=== PATIENT | female | born 1960 | race Caucasian/White ===

== ENCOUNTER → 2019-12-29 | Outpatient (CLI) | payer BC ==
[2015-08-16 21:10] VITALS: BP 132/69
--- NOTE | 2019-12-29 12:27 | RAD ---
EXAM: CT HEAD WITHOUT CONTRAST. HISTORY: Headache, hypertension. TECHNIQUE: Computed tomography of the head was performed without intravenous contrast. One or more of the following individualized dose reduction techniques were utilized for this examination: 1. Automated exposure control. 2. Adjustment of the mA and/or kV according to patient size. 3. Use of iterative reconstruction technique. COMPARISON: None. FINDINGS: There is no intracranial hemorrhage. Sheridan-white differentiation is preserved. The ventricles are normal in size and position. The visualized paranasal sinuses appear clear. The orbits are unremarkable. The temporal bones are unremarkable. The calvarium reveals no suspicious lesions. IMPRESSION: 1. No acute intracranial findings. Electronically signed by: Jose Maria Menjivar MD (12/29/2019 12:24 PM) [id number]
== END ==
LOC: CT 11:21
PROVIDERS: ATTEND Family Medicine
DX: I10 Essential (primary) hypertension (principal); R51.9 Headache, unspecified
CPT/HCPCS: 70450

== ENCOUNTER → 2020-01-21 | Outpatient (CLI) | payer BC, OTHER ==
[2015-08-16 21:10] VITALS: BP 132/69
--- NOTE | 2020-01-21 16:14 | RAD ---
BILATERAL SCREENING MAMMOGRAM, 3-D History: Routine screening. Comparison: December 25, 2013, 12/31/2014, 12/31/2015. Technique: MLO and CC digital tomosynthesis (3D) images obtained. Radiologist reviewed these images on dedicated workstation. Findings: Breast Tissue Density B : There are scattered areas of fibroglandular density. There are no dominant masses, suspicious microcalcifications, or architectural distortion. IMPRESSION: No mammographic evidence of malignancy. Recommend routine screening. BI-RADS category 1: Negative. The images were reviewed with computer-aided detection. Patient information is entered into reminder system with a target due date for the next screening mammogram. Mammography is the most sensitive method for finding small breast cancers, but it does not detect them all and is not a substitute for careful clinical examination. A negative mammogram does not negate a clinically suspicious finding and should not result in delay in biopsying a clinically suspicious abnormality. "Our facility is accredited by the [employer] Mammography Program." Electronically signed by: Manan Shah MD (01/21/2020 4:11 PM) [facility]
== END ==
LOC: MAMMO 08:05
PROVIDERS: ATTEND Family Medicine
DX: Z12.31 Encounter for screening mammogram for malignant neoplasm of breast (principal)
CPT/HCPCS: 77063; 77067

== ENCOUNTER → 2020-03-03 | Outpatient (CLI) | payer BC ==
[~2020-03-03] MED LIST: AMIT10TA PO; AMLO-186 PO; BUPIVACAINE MPF 0.25% 10 ML VIAL. ONE; ESTR1TAB15 PO; IOHEXOL 300 MG/ML 50 ML VIAL. ONE; LIDOCAINE 1% PF 30 ML VIAL. ONE; LOSA100T14 PO; METO50TA6 PO; SIMV20TA18 PO; methylPREDNISolone ACETATE 80 MG/ML VIAL. ONE
[2020-03-03 13:32] VITALS: BP 152/79
== END | disposition home or self-care (01) ==
LOC: SURG 12:29
PROVIDERS: ATTEND Anesthesiology
DX: M47.816 Spondylosis without myelopathy or radiculopathy, lumbar region (principal); I10 Essential (primary) hypertension; E78.00 Pure hypercholesterolemia, unspecified; F41.9 Anxiety disorder, unspecified; Z79.899 Other long term (current) drug therapy; Z85.3 Personal history of malignant neoplasm of breast; Z90.710 Acquired absence of both cervix and uterus
CPT/HCPCS: 64493; 64494; J1040; J3490; Q9967

== ENCOUNTER → 2021-03-02 | Day surgery (SDC) | payer BC ==
[~2021-03-02] MED LIST changes: -BUPIVACAINE MPF 0.25% 10 ML VIAL. ONE; -IOHEXOL 300 MG/ML 50 ML VIAL. ONE; -LIDOCAINE 1% PF 30 ML VIAL. ONE; -methylPREDNISolone ACETATE 80 MG/ML VIAL. ONE
[2021-03-02 11:05] VITALS: BP 147/81
== END | disposition home or self-care (01) ==
LOC: SURG 10:58
PROVIDERS: ATTEND Anesthesiology
DX: M47.816 Spondylosis without myelopathy or radiculopathy, lumbar region (principal); G89.29 Other chronic pain; M54.59 Other low back pain; M79.18 Myalgia, other site; I10 Essential (primary) hypertension; E78.00 Pure hypercholesterolemia, unspecified; Z79.899 Other long term (current) drug therapy; Z98.890 Other specified postprocedural states
CPT/HCPCS: 99214; G0463

== ENCOUNTER → 2021-03-17 | Day surgery (SDC) | payer BC ==
[~2021-03-17] MED LIST changes: +BUPIVACAINE MPF 0.25% 10 ML VIAL. ONE; +IOHEXOL 300 MG/ML 50 ML VIAL. ONE; +LIDOCAINE 1% PF 30 ML VIAL. ONE; +methylPREDNISolone ACETATE 80 MG/ML VIAL. ONE
[2021-03-17 09:55] VITALS: BP 131/52
== END | disposition home or self-care (01) ==
LOC: SURG 09:07
PROVIDERS: ATTEND Anesthesiology
DX: M47.816 Spondylosis without myelopathy or radiculopathy, lumbar region (principal); I10 Essential (primary) hypertension; E78.00 Pure hypercholesterolemia, unspecified; F41.9 Anxiety disorder, unspecified; Z79.899 Other long term (current) drug therapy; Z98.890 Other specified postprocedural states; Z85.3 Personal history of malignant neoplasm of breast; Z90.710 Acquired absence of both cervix and uterus
CPT/HCPCS: 64493; 64494; A4209; A4657; A4930; J1040; J3490; Q9967